=== PATIENT | female | born 1995 | race African-American/Black ===

== ENCOUNTER 2023-09-27 13:42 | Outpatient (CLI) | payer OTHER, SELFPAY ==
--- NOTE | ~2023-09-27 | US_ITS ---
EXAMINATION: US OB follow up DATE: 09/27/2023 15:57 INDICATION: Encounter for supervision of normal . TECHNIQUE: Real-time ultrasound of the pelvis was performed. COMPARISON: None. FINDINGS: There is a single living fetus in vertex presentation. The placenta is anterior. heart rate is 148 beats per minute (bpm). The amniotic fluid index is 21.3 cm, which is normal. The following biometric data were obtained: Biparietal diameter (BPD): 8.6 cm; head circumference (HC): 31.0 cm; abdominal circumference (AC): 31 .0 cm; femur length (FL): 6.7 cm. These measurements are concordant. Estimated weight is 2496 g +/- 374 g, which correlates with the 49th percentile when 11/04/23 is used as estimated date of delivery. As single measurements, these parameters are each equal to the following estimated gestational ages: BPD: 34 weeks 5 days. HC: 34 weeks 4 days. AC: 35 weeks 0 days. FL: 34 weeks 3 days. estimated gestational age based solely on measurements from this exam is 34 weeks 5 days +/- 2 weeks 3 days. IMPRESSION: 1. Single living fetus in vertex presentation. 2. Estimated weight is 2496 g +/- 374 g, which correlates with the 49th percentile when 11/04/23 is used as estimated date of delivery. Reviewed, dictated and finalized at location E.
== END 2023-09-27 13:43 | disposition home or self-care (01) ==
PROVIDERS: Visit Provider Student in an Organized Health Care Education/Training Program
DX: Z34.90 Encounter for supervision of normal pregnancy, unspecified, unspecified trimester (principal)
CPT/HCPCS: 76816